=== PATIENT | female | born 1935 | race Caucasian/White ===

== ENCOUNTER → 2024-02-26 | Outpatient (CLI) | payer MEDICARE ==
--- NOTE | 2024-02-27 10:30 | PE ---
EXAMINATION TYPE: PET CT fusion skull to thigh DATE OF EXAM: 02/26/2024 COMPARISON: None. HISTORY: Left-sided breast cancer diagnosed 2013 TECHNIQUE: Following the intravenous administration of 12.95 mCi of F-18 FDG, whole body images are performed from the skull base to the midthigh. Images are reviewed on the computer in the coronal, a xial, and sagittal planes. Reconstructed rotating images are created on independent workstation and reviewed on the computer. A localization and attenuation correction CT is performed in conjunction with the PET scan. Blood glucose level equals 98 SCAN: Subsequent Scan FINDINGS: SKULL BASE AND NECK: No areas of abnormal hypermetabolic uptake. CHEST, MEDIASTINUM, AND HILAR REGION: No suspicious areas of abnormal hypermetabolic uptake. Bilatera l mastectomy changes are present. ABDOMEN AND PELVIS: No areas of abnormal hypermetabolic uptake. Normal excretion is seen. Urine leak is noted. OSSEOUS STRUCTURES: Subtle lucent lesion superior medial left scapula axial image 67 with abnormal hy permetabolic uptake, max SUV is 19.73. There is expansile lytic lesion involving right lateral rib axial image 107 with abnormal hypermetabo lic uptake, max SUV is 17.75. Although hypermetabolic lesion in the left superior sacrum axial image 175, Max SUV is 9.61 Mild hypermetabolic uptake is seen in the upper thoracic spine at peak of curvature is identified whi ch is nonspecific as there is some height loss noted. Max SUV is 6.78. OTHER CT: Patient is kyphotic. Coronary artery calcifications are noted. There is spondylolisthesis a t the lumbosacral junction. IMPRESSION: Abnormal osseous hypermetabolic uptake is suspicious for new osseous metastatic disease. [facility], , 02/27/2024 10:28 AM
== END | disposition home or self-care (01) ==
LOC: RADPETMAIN 14:42
PROVIDERS: ATTEND Internal Medicine
DX: C50.112 Malignant neoplasm of central portion of left female breast (principal)
CPT/HCPCS: 78815; A9552